=== PATIENT | male | born 1990 | race African-American/Black ===

== ENCOUNTER 2016-08-03 11:02 | Emergency (ER) | payer SELFPAY ==
[~2016-08-03] VITALS: Ht 182.9 cm; Wt 80.0 kg
[2016-08-03 12:15] VITALS: BP 141/80
[2016-08-03] MEDS ORDERED: NAPROXEN 500MG TABLET PO ONE (12:45)
== END 2016-08-03 14:09 | disposition home or self-care (01) ==
LOC: ER 11:03
DX: R09.1 Pleurisy (principal); R07.9 Chest pain, unspecified; I10 Essential (primary) hypertension; R05 Cough
CPT/HCPCS: 71010; 99283; Z7610